=== PATIENT | male | born 1965 ===

== ENCOUNTER 2018-04-14 09:37 | Inpatient (IN) | payer OTHER ==
[2018-04-14] VITALS (17 sets, daily range): BP systolic 102–134; BP diastolic 50–78
[~2018-04-14] VITALS: Ht 175.3 cm; Wt 75.7 kg
[~2018-04-14 09:37] MED LIST: ACET1TAB12 PO; AMIT10TA6 PO; DOCU100C41 PO; HYDR25TA4 PO; LACT10SO6 PO; LISI40TA4 PO; MELO-102 PO; VERA120T96 PO; acetaminophen 325mg tablet PO ONE; cefazolin/dext.iso 2gm/50ml 50 ML IV ONE; famotidine 20mg tablet PO ONE; gabapentin 300mg capsule PO ONE; metoclopramide 5 mg/ml inj IV ONE; oxyCODONE SR 10mg (sust. release) tab -2 tabs (20mg) PO ONE; ringers solution, lacted 1,000 ML IV SCH; tranexamic acid inj. 1,000 MG in normal saline 100ml IV soln 90 ML IV ONE; vancomycin inj 1,500 MG in normal saline 300ml IV soln IV ONE
[2018-04-14] MEDS ORDERED: ringers solution, lacted 1,000 ML IV SCH ×2 (11:36→11:53)
[2018-04-14] MEDS ORDERED: ondansetron/PF 4mg/2ml inj IV PRN ×3 (11:40→15:25)
[2018-04-14] MEDS ORDERED: morphine 4 MG/ML inj SYRINge IV PRN ×4 (11:40→11:55)
[2018-04-14] MEDS ORDERED: meperidine/PF 25mg/ml syringe IV PRN ×6 (11:40→11:55)
[2018-04-14] MEDS ORDERED: proCHLORperazine 10 MG/2 ml inj IV PRN ×2 (11:40→11:55)
[2018-04-14] MEDS ORDERED: vancomycin 1,000mg inj ONE (12:23)
[2018-04-14] MEDS ORDERED: Thrombin (Bovine) 5,000 unit vial TP ONE (12:23)
[2018-04-14] MEDS ORDERED: LIDOcaine 1%/PF 5ML 10 MG/ML VIAL ONE (12:42)
[2018-04-14] MEDS ORDERED: ondansetron/PF 4mg/2ml inj ONE (12:42)
[2018-04-14] MEDS ORDERED: sevoflurane 250ml liquid IH ONE (12:42)
[2018-04-14] MEDS ORDERED: fentaNYL/PF 50MCG/1 ML 2ML syringe ONE (12:48)
[2018-04-14] MEDS ORDERED: MIDAZolam 5mg/5ml vial ONE (12:48)
[2018-04-14] MEDS ORDERED: propofol inj 20 ML IV ONE (15:08)
[2018-04-14] MEDS ORDERED: dexamethasone sod phosphate 4mg/ml inj. ONE (15:09)
[2018-04-14] MEDS ORDERED: ROPIVAcaine 0.5% (5mg/ml) 30ml vial ONE (15:09)
[2018-04-14] MEDS ORDERED: ketorolac trometh. 30mg/ml inj. ONE (15:09)
[2018-04-14] MEDS ORDERED: magnesium hydroxide 30ml (MOM) UD suspension PO PRN (15:25)
[2018-04-14] MEDS ORDERED: acetaminophen 325mg tablet PO PRN (15:25)
[2018-04-14] MEDS ORDERED: oxyCODONE IR 5mg (immed. release) tablet PO PRN (15:25)
[2018-04-14] MEDS ORDERED: diphenhydrAMINE 25mg capsule PO PRN ×2 (15:25)
[2018-04-14] MEDS ORDERED: HYDROmorphone 1 mg/ml syringe IV PRN ×2 (15:25)
[2018-04-14] MEDS ORDERED: bisacodyl 10mg suppository rectal RC PRN (15:25)
[2018-04-14] MEDS: potassium cl 20mEq in 1/2 NS 1,000 ML IV SCH (17:24)
[2018-04-14] MEDS: ceFAZolin 1GM/D5W- ADD-VANTAGE 50 ML IV SCH (17:24)
[2018-04-14] MEDS ORDERED: tranexamic acid inj. 760 MG in normal saline 100ml IV soln 100 ML IV ONE ×2 (18:25→20:45)
[2018-04-14] MEDS ORDERED: acetaminophen w/codeine (30MG) #3 tablet PO PRN (19:10)
[2018-04-14] MEDS ORDERED: vancomycin/NS 1 GM ADD-VANTAGE 250 ML IV SCH (20:00)
[2018-04-14] MEDS: gabapentin 300mg capsule PO SCH (20:42)
[2018-04-14] MEDS ORDERED: sennosides 8.6mg tablet PO SCH (21:00)
[2018-04-14] MEDS ORDERED: amitriptyline 10mg tablet PO SCH (21:00)
[2018-04-15] MEDS: oxyCODONE IR 5mg (immed. release) tablet PO PRN ×3 (00:19→11:03)
[2018-04-15] MEDS: ceFAZolin 1GM/D5W- ADD-VANTAGE 50 ML IV SCH (00:19)
[2018-04-15] MEDS: potassium cl 20mEq in 1/2 NS 1,000 ML IV SCH ×3 (00:21→15:24)
[2018-04-15 02:00] VITALS: BP 110/68
[2018-04-15 06:00] VITALS: BP 109/73
[2018-04-15 06:07] LABS: BASOPHILS % (AUTO) 0.1 % (0-1); EOSINOPHILS # (AUTO) 0.1 X10'3 (0-0.9); HEMATOCRIT 38.7 % (42.0-52.0); HEMOGLOBIN 13.1 g/dl (14.0-17.9); LYMPHOCYTES # (AUTO) 0.7 X10'3 (1.1-4.8); LYMPHOCYTES % (AUTO) 7.2 % (21-51); MEAN CORPUSCULAR HEMOGLOBIN 31.4 PG (27.0-31.0); MEAN CORPUSCULAR HGB CONC 33.9 % (33.0-36.5); MEAN CORPUSCULAR VOLUME 92.7 FL (78-98); MONOCYTES # (AUTO) 0.5 X10'3 (0-0.9); MONOCYTES % (AUTO) 5.3 % (2-12); NEUTROPHILS # (AUTO) 8.5 X10'3 (1.8-7.7); NEUTROPHILS % (AUTO) 86.4 % (42-75); PLATELET COUNT 174 X10'3 (140-440); RED BLOOD COUNT 4.17 X10'6 (4.70-6.10); RED CELL DISTRIBUTION WIDTH 13.1 % (11.5-14.5); WHITE BLOOD COUNT 9.9 X10'3 (4.5-11.0)
[2018-04-15 06:21] LABS: ANION GAP 8 (8-16); CHLORIDE 103 MMOL/L (99-107); POTASSIUM 5.6 MMOL/L (3.5-5.1); SODIUM 135 MMOL/L (135-145); TOTAL CARBON DIOXIDE 23.6 MMOL/L (24-32)
[2018-04-15] MEDS: gabapentin 300mg capsule PO SCH ×2 (07:58→13:00)
[2018-04-15] MEDS ORDERED: lactulose 20gm/30ml cup PO SCH (08:00)
[2018-04-15] MEDS ORDERED: HYDROchlorothiazide 25mg tablet PO SCH (08:00)
[2018-04-15] MEDS ORDERED: naproxen 500mg tablet PO SCH (08:00)
[2018-04-15] MEDS ORDERED: lisinopril 20mg tablet PO SCH (08:00)
[2018-04-15] MEDS ORDERED: docusate sod 100mg capsule PO SCH (08:00)
[2018-04-15] MEDS ORDERED: aspirin 325mg tablet PO SCH (08:30)
[2018-04-15 10:00] VITALS: BP 131/76
[2018-04-15] MEDS ORDERED: celeCOXIB 100mg capsule PO SCH (20:00)
[2018-04-16] MEDS ORDERED: acetaminophen 325mg tablet PO PRN (15:25)
== END 2018-04-15 15:30 | DRG 483 ==
LOC: PAS 09:37 → EDSTATUS 15:30 → EEVIPCON 15:30 → ORTHO 4S 17:25
PROVIDERS: ADMIT Orthopaedic Surgery; ATTEND Orthopaedic Surgery
PROC: 3E0T3BZ Introduction of Anesthetic Agent into Peripheral Nerves and Plexi, Percutaneous Approach (ICD-10-PCS; 2018-04-14)
PROC: 0RRJ00Z Replacement of Right Shoulder Joint with Reverse Ball and Socket Synthetic Substitute, Open Approach (ICD-10-PCS; principal; 2018-04-14 12:42)
DX: M19.011 Primary osteoarthritis, right shoulder (principal); D62 Acute posthemorrhagic anemia; I10 Essential (primary) hypertension; B19.20 Unspecified viral hepatitis C without hepatic coma; Z79.899 Other long term (current) drug therapy
CPT/HCPCS: 36415; 73020; 80051; 85025; 97110; 97116; 97161; 97530; A4565; A7000; G0378; J0690; J1100; J1885; J2001; J2250; J2405; J2704; J2765; J2795; J3010; J3370; J7030; J7120

== ENCOUNTER 2018-12-01 07:30 | Inpatient (IN) | payer OTHER ==
[~2018-12-01] VITALS: Ht 180.3 cm; Wt 74.0 kg
[2018-12-01] VITALS (17 sets, daily range): BP systolic 87–126; BP diastolic 49–85
[~2018-12-01 07:30] MED LIST changes: +LACT10SO57 PO; -LACT10SO6 PO; +MORP30TA60 PO; +OXYC-134 PO; +VERA120T9 PO; -VERA120T96 PO; -acetaminophen 325mg tablet PO ONE; -cefazolin/dext.iso 2gm/50ml 50 ML IV ONE; -famotidine 20mg tablet PO ONE; -gabapentin 300mg capsule PO ONE; -metoclopramide 5 mg/ml inj IV ONE; -oxyCODONE SR 10mg (sust. release) tab -2 tabs (20mg) PO ONE; -ringers solution, lacted 1,000 ML IV SCH; -tranexamic acid inj. 1,000 MG in normal saline 100ml IV soln 90 ML IV ONE; -vancomycin inj 1,500 MG in normal saline 300ml IV soln IV ONE
[2018-12-01] MEDS ORDERED: vancomycin inj 1,500 MG in normal saline 300ml IV soln IV ONE (08:30)
[2018-12-01] MEDS ORDERED: ringers solution, lacted 1,000 ML IV SCH ×2 (08:30→09:41)
[2018-12-01] MEDS ORDERED: cefazolin/dext.iso 2gm/100 ML IV ONE (08:30)
[2018-12-01] MEDS ORDERED: metoclopramide 5 mg/ml inj IV ONE (08:30)
[2018-12-01] MEDS ORDERED: gabapentin 300mg capsule PO ONE (08:30)
[2018-12-01] MEDS ORDERED: tranexamic acid inj. 1,000 MG in normal saline 100 ML IV ONE (08:30)
[2018-12-01] MEDS ORDERED: famotidine 20mg tablet PO ONE (08:30)
[2018-12-01] MEDS ORDERED: acetaminophen 325mg tablet PO ONE (08:30)
[2018-12-01] MEDS ORDERED: oxyCODONE SR 10mg (sust. release) tab -2 tabs (20mg) PO ONE (08:30)
[2018-12-01] MEDS ORDERED: tetracaine 1% (10mg/ml) pres. free inj. ONE (09:33)
[2018-12-01] MEDS ORDERED: fentaNYL/PF 50MCG/1 ML 2ML syringe ONE (09:35)
[2018-12-01] MEDS ORDERED: morphine /PF 1mg/ml 10ml inj. ONE (09:35)
[2018-12-01] MEDS ORDERED: MIDAZolam 1mg/ml 10ml vial ONE (09:35)
[2018-12-01] MEDS ORDERED: labetalol 20mg/4ml (5mg/ml) syringe IV PRN (09:45)
[2018-12-01] MEDS ORDERED: fentaNYL/PF 50MCG/1 ML 2ML syringe IV PRN ×2 (09:45)
[2018-12-01] MEDS ORDERED: hydrALAZINE 20mg/ml inj. IV PRN (09:45)
[2018-12-01] MEDS ORDERED: diphenhydrAMINE 50 mg/ml inj IV PRN (09:45)
[2018-12-01] MEDS ORDERED: ondansetron/PF 4mg/2ml inj IV PRN ×3 (09:45→13:00)
[2018-12-01] MEDS ORDERED: morphine 4 MG/ML inj SYRINge IV PRN ×2 (09:45)
[2018-12-01] MEDS ORDERED: ceFAZolin 1000mg inj ONE ×3 (09:57→11:31)
[2018-12-01] MEDS ORDERED: vancomycin 1,000mg inj ONE (10:13)
[2018-12-01] MEDS ORDERED: propofol inj 20 ML IV ONE (11:01)
[2018-12-01] MEDS ORDERED: LIDOcaine 2% (20mg/ml) 5ml vial ONE (11:01)
[2018-12-01] MEDS ORDERED: acetaminophen 325mg tablet PO PRN (13:00)
[2018-12-01] MEDS ORDERED: diphenhydrAMINE 25mg capsule PO PRN ×2 (13:00)
[2018-12-01] MEDS ORDERED: HYDROmorphone inj. 0.5 MG/0.5 ML DISP.SYRIN IV PRN (13:00)
[2018-12-01] MEDS ORDERED: oxyCODONE IR 5mg (immed. release) tablet PO PRN (13:00)
[2018-12-01] MEDS: gabapentin 300mg capsule PO SCH ×2 (13:00→21:46)
[2018-12-01] MEDS ORDERED: magnesium hydroxide 30ml (MOM) UD suspension PO PRN (13:00)
[2018-12-01] MEDS ORDERED: bisacodyl 10mg suppository rectal RC PRN (13:00)
--- NOTE | 2018-12-01 13:07 | NUR ---
Received from OR via , accompanied by Anesthesiologist dr. colin and report given by Anesthesiolgist. patient arrived via hospital bed. VSS as charted, 02 94% on 2lnc. DUSTIN dressing to right hip, cdi. Ice pack in place, scd's in place, f/c draining light yellow drainage. Correctional officers at bedside. Will continue to monitor.
[2018-12-01] MEDS: acetaminophen 325mg tablet PO SCH ×2 (14:00→20:10)
--- NOTE | 2018-12-01 14:17 | NUR ---
PATIENT DISCHARGE CRITERIA MET. REPORT CALLED TO CHANDU TINAJERO ALL QUESTIONS AND CONCERNS ADDRESSED. DUSTIN DRESSING TO LEFT HIP CDI. F/C IN PLACE DRAINING LIGHT YELLOW URINE, SCD'S IN PLACE. TRANSFERRED VIA HOSPITAL BED. GUARDS AT BEDSIDE.
[2018-12-01] MEDS ORDERED: tranexamic acid inj. 750 MG in normal saline 100ml IV soln 100 ML IV ONE (16:00)
[2018-12-01] MEDS: oxyCODONE IR 5mg (immed. release) tablet PO PRN ×2 (16:07→20:11)
[2018-12-01] MEDS: ceFAZolin 1GM/D5W- ADD-VANTAGE 50 ML IV SCH (16:52)
[2018-12-01] MEDS: potassium cl 20mEq in 1/2 NS 1,000 ML IV SCH (16:52)
[2018-12-01] MEDS ORDERED: acetaminophen w/codeine (30MG) #3 tablet PO PRN (17:25)
[2018-12-01] MEDS ORDERED: docusate sod 100mg capsule PO PRN (17:25)
[2018-12-01] MEDS ORDERED: vancomycin/NS 1 GM ADD-VANTAGE 250 ML IV SCH (20:00)
[2018-12-01] MEDS ORDERED: lactulose 20gm/30ml cup PO PRN (20:00)
[2018-12-01] MEDS: sennosides 8.6mg tablet PO SCH (21:00)
[2018-12-01] MEDS ORDERED: amitriptyline 10mg tablet PO SCH (21:00)
[2018-12-01] MEDS: amitriptyline 10mg tablet PO SCH (21:48)
[2018-12-02] VITALS (9 sets, daily range): BP systolic 100–127; BP diastolic 58–77
[2018-12-02] MEDS: HYDROmorphone 1 mg/ml syringe IV PRN ×4 (00:19→20:15)
[2018-12-02] MEDS: ceFAZolin 1GM/D5W- ADD-VANTAGE 50 ML IV SCH (00:23)
[2018-12-02] MEDS: potassium cl 20mEq in 1/2 NS 1,000 ML IV SCH ×4 (00:30→20:59)
[2018-12-02] MEDS: acetaminophen 325mg tablet PO SCH ×4 (02:12→20:18)
--- NOTE | 2018-12-02 06:22 | NUR ---
NATALYA ALAS PER ORDER, CATH TIP INTACT, URINAL AT BEDSIDE Addendum: 12/02/18 at 0623 by Amanda Sam RN Amended: Links added.
--- NOTE | 2018-12-02 06:45 | NUR ---
Report received from LIOR Patel
[2018-12-02 06:53] LABS: BASOPHILS % (AUTO) 0.5 % (0-1); EOSINOPHILS # (AUTO) 0.1 X10'3 (0-0.9); EOSINOPHILS % (AUTO) 1.4 % (0-6); HEMATOCRIT 40.3 % (42.0-52.0); HEMOGLOBIN 13.7 g/dl (14.0-17.9); LYMPHOCYTES # (AUTO) 1.4 X10'3 (1.1-4.8); LYMPHOCYTES % (AUTO) 19.7 % (21-51); MEAN CORPUSCULAR HEMOGLOBIN 32.1 PG (27.0-31.0); MEAN CORPUSCULAR HGB CONC 33.9 g/dL (33.0-36.5); MEAN CORPUSCULAR VOLUME 94.6 FL (78-98); MEAN PLATELET VOLUME 8.7 FL (7.4-10.4); MONOCYTES # (AUTO) 0.7 X10'3 (0-0.9); MONOCYTES % (AUTO) 10.8 % (2-12); NEUTROPHILS # (AUTO) 4.6 X10'3 (1.8-7.7); NEUTROPHILS % (AUTO) 67.6 % (42-75); PLATELET COUNT 150 X10'3 (140-440); RED BLOOD COUNT 4.26 X10'6 (4.70-6.10); RED CELL DISTRIBUTION WIDTH 12.9 % (11.5-14.5); WHITE BLOOD COUNT 6.9 X10'3 (4.5-11.0)
[2018-12-02] MEDS: oxyCODONE IR 5mg (immed. release) tablet PO PRN ×3 (07:28→17:51)
[2018-12-02] MEDS: HYDROchlorothiazide 25mg tablet PO SCH (08:00)
[2018-12-02] MEDS: lisinopril 20mg tablet PO SCH (08:00)
[2018-12-02] MEDS: verapamil SR 120mg (sust. release) tab PO SCH (08:00)
[2018-12-02] MEDS: gabapentin 300mg capsule PO SCH ×3 (08:00→20:18)
[2018-12-02] MEDS ORDERED: ASPI-1 PO (09:44)
[2018-12-02] MEDS ORDERED: WALKERFR (09:44)
[2018-12-02] MEDS: aspirin 325mg tablet PO SCH (10:12)
--- NOTE | 2018-12-02 16:25 | NUR ---
Tele DCd per protocol
--- NOTE | 2018-12-02 18:30 | NUR ---
Report given to LIOR Wells
--- NOTE | 2018-12-02 19:00 | NUR ---
Patient in room ORTHO 4010. I have received report from Aminata TINAJERO and had the opportunity to ask questions and assume patient care.
[2018-12-02] MEDS: celeCOXIB 100mg capsule PO SCH (20:17)
[2018-12-02] MEDS: amitriptyline 10mg tablet PO SCH (20:18)
[2018-12-02] MEDS: sennosides 8.6mg tablet PO SCH (21:00)
[2018-12-03] MEDS: oxyCODONE IR 5mg (immed. release) tablet PO PRN ×4 (00:07→17:32)
[2018-12-03] MEDS: acetaminophen 325mg tablet PO SCH ×2 (03:52→09:12)
[2018-12-03] MEDS: potassium cl 20mEq in 1/2 NS 1,000 ML IV SCH (04:59)
[2018-12-03 06:00] VITALS: BP 97/58
[2018-12-03 07:01] LABS: BASOPHILS % (AUTO) 0.4 % (0-1); EOSINOPHILS # (AUTO) 0.3 X10'3 (0-0.9); EOSINOPHILS % (AUTO) 2.9 % (0-6); HEMATOCRIT 34.8 % (42.0-52.0); HEMOGLOBIN 12.2 g/dl (14.0-17.9); LYMPHOCYTES # (AUTO) 1.1 X10'3 (1.1-4.8); LYMPHOCYTES % (AUTO) 12.8 % (21-51); MEAN CORPUSCULAR HEMOGLOBIN 32.5 PG (27.0-31.0); MEAN CORPUSCULAR HGB CONC 34.9 g/dL (33.0-36.5); MEAN PLATELET VOLUME 8.5 FL (7.4-10.4); MONOCYTES % (AUTO) 10.9 % (2-12); NEUTROPHILS # (AUTO) 6.5 X10'3 (1.8-7.7); PLATELET COUNT 130 X10'3 (140-440); RED BLOOD COUNT 3.74 X10'6 (4.70-6.10); RED CELL DISTRIBUTION WIDTH 12.7 % (11.5-14.5); WHITE BLOOD COUNT 8.9 X10'3 (4.5-11.0)
[2018-12-03] MEDS: HYDROmorphone 1 mg/ml syringe IV PRN ×2 (07:24→13:37)
[2018-12-03 08:00] VITALS: BP 103/70
[2018-12-03] MEDS: verapamil SR 120mg (sust. release) tab PO SCH (08:00)
[2018-12-03] MEDS: lisinopril 20mg tablet PO SCH (08:00)
[2018-12-03] MEDS: HYDROchlorothiazide 25mg tablet PO SCH (08:00)
[2018-12-03] MEDS: aspirin 325mg tablet PO SCH (09:11)
[2018-12-03] MEDS: celeCOXIB 100mg capsule PO SCH (09:11)
[2018-12-03] MEDS: gabapentin 300mg capsule PO SCH ×2 (09:11→12:21)
[2018-12-03] MEDS ORDERED: acetaminophen 325mg tablet PO PRN (13:00)
--- NOTE | 2018-12-03 13:59 | NUR ---
Guards in room stated P-up time for pt will not be until aprox 6-7pm when transport is coordinated. pt ok to DC. WBAT, per Dr Butt: also gave recommendations for pain medications. called recommendations to [facility] by chair frame builder/Alisa. Report.
--- NOTE | 2018-12-03 18:10 | NUR ---
I called [employer] regarding the need for the guards to borrow a w/c to transfer patient back to the alf. There was a miscommunication about needing a w/c for patient in the transport van back to the alf. [employer] gave permission to allow us to have them use one of the hospital's w/c and to return it when they come back to the hospital in future date. If they were not allowed to borrow a w/c then they would have to keep patient one more night and d/c him tomorrow. I have a list of phone numbers for the alf that we can call at later date to make arrangements for the w/c to be returned. Per the guards they come to our hospital frequently so it should be no problem in returning the w/c.
--- NOTE | 2018-12-03 18:43 | NUR ---
[facility], spoke deanne/Popeye/RN. Pt escorted BEATA in WC belonging to [facility]/will need to take to facility as escort Guards did not bring a WC for transport Van. Pt denies pain, SOB, resp distress, N/V, vertigo at DC. pt facility physician will be prescribing new Rx meds for pt. Facility called earlier in the day to confirm.
== END 2018-12-03 18:30 | DRG 470 ==
LOC: EDSTATUS 07:30 → EEVIPCON 07:30 → PAS IN 08:00 → EDSTATUS 10:30 → ORTHO 4S 14:50
PROVIDERS: ADMIT Orthopaedic Surgery; ATTEND Orthopaedic Surgery
PROC: 0SRB06A Replacement of Left Hip Joint with Oxidized Zirconium on Polyethylene Synthetic Substitute, Uncemented, Open Approach (ICD-10-PCS; principal; 2018-12-01 10:35)
DX: M16.12 Unilateral primary osteoarthritis, left hip (principal); D62 Acute posthemorrhagic anemia; M25.552 Pain in left hip; I10 Essential (primary) hypertension; B18.2 Chronic viral hepatitis C
CPT/HCPCS: Z7506; Z7508; 36415; 72170; 82948; 85025; 86885; 86900; 86901; 87081; 97110; 97116; 97161; 97530; A4618; A6258; A6449; A7000; C1758; C1776; C9250; G0378; J0690; J1170; J2001; J2250; J2270; J2704; J2765; J3010; J3370; J3480; J7120

== ENCOUNTER 2019-02-02 14:35 | Inpatient (IN) | payer OTHER ==
[~2019-02-02] VITALS: Ht 180.3 cm; Wt 74.0 kg
[2019-02-02] VITALS (15 sets, daily range): BP systolic 98–139; BP diastolic 58–88
[~2019-02-02 14:35] MED LIST changes: +ASPI-1 PO; +WALKERFR; +cefazolin/dext.iso 2gm/50ml 50 ML IV ONE; +famotidine 20mg tablet PO ONE; +vancomycin 1,000mg inj ONE; +vancomycin inj 1,500 MG in normal saline 300ml IV soln IV ONE
[2019-02-02] MEDS ORDERED: LIDOcaine 1% (10mg/ml) 2ml vial ONE (14:36)
[2019-02-02 15:35] LABS: BASOPHILS # (AUTO) 0.1 X10'3 (0-0.2); BASOPHILS % (AUTO) 1.3 % (0-1); EOSINOPHILS # (AUTO) 0.2 X10'3 (0-0.9); EOSINOPHILS % (AUTO) 4.5 % (0-6); LYMPHOCYTES # (AUTO) 1.4 X10'3 (1.1-4.8); LYMPHOCYTES % (AUTO) 27.2 % (21-51); MEAN CORPUSCULAR HEMOGLOBIN 30.2 PG (27.0-31.0); MEAN CORPUSCULAR HGB CONC 33.3 g/dL (33.0-36.5); MEAN CORPUSCULAR VOLUME 90.7 FL (78-98); MEAN PLATELET VOLUME 7.1 FL (7.4-10.4); MONOCYTES # (AUTO) 0.4 X10'3 (0-0.9); MONOCYTES % (AUTO) 8.3 % (2-12); NEUTROPHILS # (AUTO) 3.1 X10'3 (1.8-7.7); NEUTROPHILS % (AUTO) 58.7 % (42-75); PRE OP HEMATOCRIT 39.3 % (42.0-52.0); PRE OP HEMOGLOBIN 13.1 g/dL (14.0-17.9); PRE OP PLATELET COUNT 287 X10'3 (140-440); RED BLOOD COUNT 4.33 X10'6 (4.70-6.10); RED CELL DISTRIBUTION WIDTH 13.3 % (11.5-14.5)
[2019-02-02] MEDS ORDERED: sevoflurane 250ml liquid IH ONE (15:44)
[2019-02-02] MEDS ORDERED: midazolam 2 mg/2 ml injection ONE (15:49)
[2019-02-02] MEDS ORDERED: fentaNYL /PF 50mcg/ml 5ml ampule ONE (15:49)
[2019-02-02] MEDS ORDERED: tranexamic acid inj. 1,000 MG in normal saline 100ml IV soln 100 ML IV ONE (15:50)
[2019-02-02 15:53] LABS: ALBUMIN 3.7 G/DL (3.4-5.0); ALKALINE PHOSPHATASE 69 IU/L (46-116); BLOOD UREA NITROGEN 14 MG/DL (7-18); BUN/CREATININE RATIO 12.7 (5.4-32.0); C-REACTIVE PROTEIN 0.66 MG/DL (0.0-0.5); CALCIUM 8.9 MG/DL (8.5-10.1); CHLORIDE 105 MMOL/L (99-107); PRE OP ALT 17 U/L (30-65); PRE OP ANION GAP 13 (8-16); PRE OP AST 20 U/L (10-37); PRE OP BILIRUB, TOTAL 0.5 MG/DL (0.0-1.0); PRE OP GLUCOSE 82 MG/DL (70-104); PRE OP POTASSIUM 3.8 MMOL/L (3.4-5.1); PRE OP SODIUM 141 MMOL/L (135-145); TOTAL CARBON DIOXIDE 22.7 MMOL/L (24-32); TOTAL PROTEIN 7.3 G/DL (6.4-8.2); eGFR 69 ML/MIN
[2019-02-02] MEDS ORDERED: propofol inj 20 ML IV ONE (16:32)
[2019-02-02] MEDS ORDERED: rocuronium 10mg/ml inj IV ONE (16:32)
[2019-02-02] MEDS ORDERED: LIDOcaine 2% (20mg/ml) 5ml vial ONE (16:32)
[2019-02-02] MEDS: ceFAZolin 1000mg inj ONE ×2 (16:41→16:42)
[2019-02-02] MEDS: tobramycin sulfate 1.2gm vial IJ ONE ×2 (16:42→16:45)
[2019-02-02] MEDS: vancomycin 1,000mg inj ONE ×2 (16:43→16:45)
[2019-02-02] MEDS ORDERED: SULF1TAB49 PO (16:43)
[2019-02-02] MEDS ORDERED: ceFAZolin 1000mg inj ONE (16:49)
[2019-02-02] MEDS ORDERED: ketamine 50mg/5ml syringe ONE (16:52)
[2019-02-02] MEDS ORDERED: dexamethasone sod phosphate 4mg/ml inj. ONE (16:55)
[2019-02-02] MEDS ORDERED: neostigmine methylsulfate 1 MG/ML 10ml vial ONE (16:55)
[2019-02-02] MEDS ORDERED: glycopyrrolate 0.2mg/ml inj ONE (16:55)
[2019-02-02] MEDS ORDERED: ondansetron/PF 4mg/2ml inj ONE (16:55)
[2019-02-02] MEDS ORDERED: ringers solution, lacted 1,000 ML IV SCH (17:04)
[2019-02-02] MEDS ORDERED: proCHLORperazine 10 MG/2 ml inj IV PRN (17:05)
[2019-02-02] MEDS ORDERED: meperidine/PF 25mg/ml syringe IV PRN ×2 (17:05)
[2019-02-02] MEDS ORDERED: morphine 4 MG/ML inj SYRINge IV PRN ×2 (17:05)
[2019-02-02] MEDS ORDERED: ondansetron/PF 4mg/2ml inj IV PRN ×2 (17:05→17:25)
[2019-02-02 17:23] LABS: APPEARANCE,SYNOVIAL FLUID CLOUDY; COLOR,SYNOVIAL FLUID OTHER; LYMPHOCYTES,SYNOVIAL FLUID 2 % (0-75); MONOCYTES,SYNOVIAL FLUID 3 % (0-0); NEUTROPHILS,SYNOVIAL FLUID 95 % (0-25); SYN RBC 12250 /CU MM (0); SYN WBC 18750 /CU MM (0-200)
[2019-02-02] MEDS ORDERED: HYDROmorphone inj. 0.5 MG/0.5 ML DISP.SYRIN IV PRN (17:25)
[2019-02-02] MEDS ORDERED: bisacodyl 10mg suppository rectal RC PRN (17:25)
[2019-02-02] MEDS ORDERED: oxyCODONE IR 5mg (immed. release) tablet PO PRN (17:25)
[2019-02-02] MEDS ORDERED: HYDROmorphone 1 mg/ml syringe IV PRN (17:25)
[2019-02-02] MEDS ORDERED: diphenhydrAMINE 25mg capsule PO PRN ×2 (17:25)
--- NOTE | 2019-02-02 17:52 | NUR ---
Received from OR via BED , accompanied by Anesthesiologist DR SANTOS and report given by Anesthesiolgist. PATIENT WAKING UP, DENIES PAIN, V/S WNL, NEUROVASCULAR CHECKS INTACT, 18G PIV LUE , WV DRESSING TO LEFT HIP CDI AT 125 CONTINOUS SUCTION AND BONIFACIO DRAIN ALSO WITH APPROX 10CCW/ COLD POWDER PACK AND W/ SCD ON. F/C DRAINING CLEAR YELLOW URINE. SENSATION T-11.
[2019-02-02] MEDS: meperidine/PF 25mg/ml syringe IV PRN ×2 (17:56→18:11)
[2019-02-02] MEDS ORDERED: acetaminophen 1,000mg/100ml IV 100 ML IV ONE (18:15)
--- NOTE | 2019-02-02 18:15 | NUR ---
Patient in room PAS IN 900. I have received report from LIOR Sanders and had the opportunity to ask questions and assume patient care.
--- NOTE | 2019-02-02 18:20 | NUR ---
PATIENT A&OX4, DENIES PAIN, V/S WNL, NEUROVASCULAR CHECKS INTACT, 18G PIV LUE , DRESSING TO LEFT HIP WITH HV AND BONIFACIO CDI WITH NO LEAKS DETECTED W/ COLD POWDER PACK AND W/ SCD ON. F/C DRAINING CLEAR YELLOW URINE.FULL SENSATIONS, BOLTON, PATIENT TAKEN TO ORTHO WITH ALL BELONGINGS AND HOOKED UP TO MONITORS IN ROOM AND REPORT GIVEN TO NURSERYPERSON WHO HAS TAKEN OVER PATIENT CARE. 2 GUARDS ARE WITH PATIENT AT BEDSIDE AT ALL TIMES WELL.
[2019-02-02] MEDS: potassium cl 20mEq in 1/2 NS 1,000 ML IV SCH (18:40)
[2019-02-02] MEDS: acetaminophen 325mg tablet PO SCH (19:55)
[2019-02-02] MEDS ORDERED: vancomycin/NS 1 GM ADD-VANTAGE 250 ML IV SCH (20:00)
[2019-02-02] MEDS ORDERED: acetaminophen 1,000mg/100ml IV 100 ML IV SCH (20:00)
[2019-02-02] MEDS: oxyCODONE IR 5mg (immed. release) tablet PO PRN (20:03)
[2019-02-02] MEDS: gabapentin 300mg capsule PO SCH (20:03)
[2019-02-02] MEDS: sennosides 8.6mg tablet PO SCH (20:03)
[2019-02-02 20:21] LABS: PRE OP PARTIAL THROMB. TIME 32 SECONDS (22-32)
[2019-02-03] VITALS (7 sets, daily range): BP systolic 95–109; BP diastolic 46–63
[2019-02-03] MEDS: ceFAZolin 1GM/D5W- ADD-VANTAGE 50 ML IV SCH ×2 (00:02→07:33)
[2019-02-03] MEDS: acetaminophen 325mg tablet PO SCH ×4 (02:00→20:05)
[2019-02-03] MEDS: oxyCODONE IR 5mg (immed. release) tablet PO PRN ×5 (02:29→20:13)
[2019-02-03] MEDS: potassium cl 20mEq in 1/2 NS 1,000 ML IV SCH ×4 (02:30→23:15)
[2019-02-03] MEDS ORDERED: ringers solution, lacted 1,000 ML IV SCH (05:00)
[2019-02-03 06:02] LABS: BASOPHILS % (AUTO) 0.4 % (0-1); EOSINOPHILS % (AUTO) 0.2 % (0-6); HEMATOCRIT 32.3 % (42.0-52.0); HEMOGLOBIN 10.9 g/dl (14.0-17.9); LYMPHOCYTES # (AUTO) 0.8 X10'3 (1.1-4.8); LYMPHOCYTES % (AUTO) 11.5 % (21-51); MEAN CORPUSCULAR HEMOGLOBIN 30.7 PG (27.0-31.0); MEAN CORPUSCULAR HGB CONC 33.9 g/dL (33.0-36.5); MEAN CORPUSCULAR VOLUME 90.7 FL (78-98); MEAN PLATELET VOLUME 7.5 FL (7.4-10.4); MONOCYTES # (AUTO) 0.4 X10'3 (0-0.9); MONOCYTES % (AUTO) 6.1 % (2-12); NEUTROPHILS # (AUTO) 5.7 X10'3 (1.8-7.7); NEUTROPHILS % (AUTO) 81.8 % (42-75); PLATELET COUNT 244 X10'3 (140-440); RED BLOOD COUNT 3.56 X10'6 (4.70-6.10); RED CELL DISTRIBUTION WIDTH 13.1 % (11.5-14.5)
--- NOTE | 2019-02-03 06:30 | NUR ---
Patient in room ORTHO 4024. I have received report from Gemma and had the opportunity to ask questions and assume patient care.
--- NOTE | 2019-02-03 06:44 | NUR ---
Problems reprioritized. Patient report given, questions answered & plan of care reviewed with LIOR Aguila.
[2019-02-03 07:07] LABS: ANION GAP 9 (8-16); CHLORIDE 105 MMOL/L (99-107); SODIUM 139 MMOL/L (135-145); TOTAL CARBON DIOXIDE 24.6 MMOL/L (24-32)
[2019-02-03] MEDS: gabapentin 300mg capsule PO SCH ×3 (07:33→20:06)
[2019-02-03] MEDS: lisinopril 20mg tablet PO SCH (07:39)
[2019-02-03] MEDS: enoxaparin 40mg/0.4ml syringe SQ SCH (07:40)
[2019-02-03] MEDS: penicillin G potassium inj 3,000,000 UNIT in normal saline 100ml IV soln 100 ML IV SCH ×4 (12:39→23:15)
--- NOTE | 2019-02-03 15:45 | NUR ---
WOC bedside to assess wound VAC dressing. VAC dressing suctioned down at 125mm/hg low continuous suction with no signs of impairment or leaks at this time. Will continue to follow and change VAC dressing per protocol
--- NOTE | 2019-02-03 16:24 | NUR ---
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 Pt seen at bedside provided with verbal protein education. Pt currently on regular diet, pending documentation of PO intake. Pt reports getting extra protein at the [facility] and is agreeable to double eggs QD with breakfast and double protein TID, d/w dietary. Will continue to follow. Addendum: 02/03/19 at [address] Amended: Links added.
--- NOTE | 2019-02-03 18:23 | NUR ---
Problems reprioritized. Patient report given, questions answered & plan of care reviewed with Kandice.
--- NOTE | 2019-02-03 18:25 | NUR ---
Patient in room ORTHO 4017. I have received report from Ayla TINAJERO and had the opportunity to ask questions and assume patient care.
[2019-02-03] MEDS: lactobacillus rhamnosus 10,000 MMU CELLS/CAPSULE PO SCH (20:05)
[2019-02-03] MEDS: sennosides 8.6mg tablet PO SCH (20:05)
[2019-02-04] MEDS: penicillin G potassium inj 3,000,000 UNIT in normal saline 100ml IV soln 100 ML IV SCH ×5 (03:01→20:00)
[2019-02-04] MEDS: acetaminophen 325mg tablet PO SCH ×3 (03:02→13:31)
[2019-02-04 06:00] VITALS: BP 105/65
--- NOTE | 2019-02-04 06:00 | NUR ---
Patient in room ORTHO 4017. I have received report from SHAUNA TINAJERO and had the opportunity to ask questions and assume patient care.
--- NOTE | 2019-02-04 06:13 | NUR ---
Problems reprioritized. Patient report given, questions answered & plan of care reviewed with Israel TINAJERO and Wendy JOHNSON.
[2019-02-04 06:53] LABS: BASOPHILS # (AUTO) 0.1 X10'3 (0-0.2); BASOPHILS % (AUTO) 0.9 % (0-1); EOSINOPHILS # (AUTO) 0.2 X10'3 (0-0.9); EOSINOPHILS % (AUTO) 3.1 % (0-6); HEMOGLOBIN 11.2 g/dl (14.0-17.9); LYMPHOCYTES # (AUTO) 1.3 X10'3 (1.1-4.8); LYMPHOCYTES % (AUTO) 18.3 % (21-51); MEAN CORPUSCULAR HEMOGLOBIN 30.5 PG (27.0-31.0); MEAN CORPUSCULAR HGB CONC 33.8 g/dL (33.0-36.5); MEAN CORPUSCULAR VOLUME 90.2 FL (78-98); MEAN PLATELET VOLUME 7.5 FL (7.4-10.4); MONOCYTES # (AUTO) 0.6 X10'3 (0-0.9); MONOCYTES % (AUTO) 8.8 % (2-12); NEUTROPHILS # (AUTO) 4.9 X10'3 (1.8-7.7); NEUTROPHILS % (AUTO) 68.9 % (42-75); PLATELET COUNT 226 X10'3 (140-440); RED BLOOD COUNT 3.66 X10'6 (4.70-6.10); RED CELL DISTRIBUTION WIDTH 13.1 % (11.5-14.5); WHITE BLOOD COUNT 7.1 X10'3 (4.5-11.0)
[2019-02-04] MEDS: gabapentin 300mg capsule PO SCH ×3 (07:33→21:41)
[2019-02-04] MEDS: lactobacillus rhamnosus 10,000 MMU CELLS/CAPSULE PO SCH ×2 (07:33→20:00)
[2019-02-04] MEDS: oxyCODONE IR 5mg (immed. release) tablet PO PRN ×4 (07:35→21:53)
[2019-02-04] MEDS: enoxaparin 40mg/0.4ml syringe SQ SCH (07:35)
[2019-02-04] MEDS: lisinopril 20mg tablet PO SCH (07:37)
[2019-02-04] MEDS: potassium cl 20mEq in 1/2 NS 1,000 ML IV SCH (09:25)
[2019-02-04 10:00] VITALS: BP 126/51
[2019-02-04] MEDS: acetaminophen 325mg tablet PO PRN (17:21)
[2019-02-04] MEDS ORDERED: acetaminophen 325mg tablet PO PRN (17:25)
--- NOTE | 2019-02-04 18:20 | NUR ---
Problems reprioritized. Patient report given, questions answered & plan of care reviewed with CAMDEN TINAJERO.
[2019-02-04 19:00] VITALS: BP 100/53
[2019-02-04] MEDS: sennosides 8.6mg tablet PO SCH (21:41)
[2019-02-04 23:00] VITALS: BP 89/52
[2019-02-05] MEDS: penicillin G potassium inj 3,000,000 UNIT in normal saline 100ml IV soln 100 ML IV SCH ×6 (01:17→20:52)
[2019-02-05] MEDS: oxyCODONE IR 5mg (immed. release) tablet PO PRN ×5 (04:35→20:51)
[2019-02-05 06:00] VITALS: BP 100/55
[2019-02-05 06:14] LABS: BASOPHILS # (AUTO) 0.1 X10'3 (0-0.2); EOSINOPHILS # (AUTO) 0.2 X10'3 (0-0.9); EOSINOPHILS % (AUTO) 2.7 % (0-6); HEMATOCRIT 29.7 % (42.0-52.0); HEMOGLOBIN 10.2 g/dl (14.0-17.9); LYMPHOCYTES # (AUTO) 1.4 X10'3 (1.1-4.8); LYMPHOCYTES % (AUTO) 16.8 % (21-51); MEAN CORPUSCULAR HGB CONC 34.4 g/dL (33.0-36.5); MEAN CORPUSCULAR VOLUME 90.3 FL (78-98); MEAN PLATELET VOLUME 7.6 FL (7.4-10.4); MONOCYTES # (AUTO) 0.7 X10'3 (0-0.9); MONOCYTES % (AUTO) 8.9 % (2-12); NEUTROPHILS # (AUTO) 5.7 X10'3 (1.8-7.7); NEUTROPHILS % (AUTO) 70.6 % (42-75); PLATELET COUNT 203 X10'3 (140-440); RED BLOOD COUNT 3.28 X10'6 (4.70-6.10); RED CELL DISTRIBUTION WIDTH 13.1 % (11.5-14.5); WHITE BLOOD COUNT 8.1 X10'3 (4.5-11.0)
[2019-02-05] MEDS: gabapentin 300mg capsule PO SCH ×3 (07:44→20:52)
[2019-02-05] MEDS: enoxaparin 40mg/0.4ml syringe SQ SCH (07:44)
[2019-02-05] MEDS: lactobacillus rhamnosus 10,000 MMU CELLS/CAPSULE PO SCH ×2 (07:44→20:52)
[2019-02-05] MEDS: lisinopril 20mg tablet PO SCH (07:50)
[2019-02-05 10:00] VITALS: BP 105/60
--- NOTE | 2019-02-05 12:45 | NUR ---
REMOVED BONIFACIO DRAIN, TIP INTACT. PATIENT TOLERATED WELL.
[2019-02-05] MEDS: magnesium hydroxide 30ml (MOM) UD suspension PO PRN (14:55)
[2019-02-05] MEDS: acetaminophen 325mg tablet PO PRN (17:08)
--- NOTE | 2019-02-05 18:15 | NUR ---
Problems reprioritized. Patient report given, questions answered & plan of care reviewed with JOHANNE TINAJERO.
--- NOTE | 2019-02-05 19:00 | NUR ---
Patient in room ORTHO 4017. I have received report from Israel TINAJERO and had the opportunity to ask questions and assume patient care.
[2019-02-05] MEDS: sennosides 8.6mg tablet PO SCH (20:52)
[2019-02-06] MEDS: penicillin G potassium inj 3,000,000 UNIT in normal saline 100ml IV soln 100 ML IV SCH ×6 (01:02→20:55)
[2019-02-06] MEDS: oxyCODONE IR 5mg (immed. release) tablet PO PRN ×6 (01:02→23:04)
[2019-02-06 06:00] VITALS: BP 92/49
[2019-02-06 07:20] LABS: BASOPHILS # (AUTO) 0.1 X10'3 (0-0.2); BASOPHILS % (AUTO) 1.1 % (0-1); EOSINOPHILS # (AUTO) 0.4 X10'3 (0-0.9); EOSINOPHILS % (AUTO) 5.4 % (0-6); HEMATOCRIT 28.2 % (42.0-52.0); HEMOGLOBIN 9.6 g/dl (14.0-17.9); LYMPHOCYTES # (AUTO) 1.3 X10'3 (1.1-4.8); LYMPHOCYTES % (AUTO) 17.5 % (21-51); MEAN CORPUSCULAR HEMOGLOBIN 30.5 PG (27.0-31.0); MEAN CORPUSCULAR HGB CONC 34.1 g/dL (33.0-36.5); MEAN CORPUSCULAR VOLUME 89.5 FL (78-98); MEAN PLATELET VOLUME 7.8 FL (7.4-10.4); MONOCYTES # (AUTO) 0.7 X10'3 (0-0.9); MONOCYTES % (AUTO) 9.7 % (2-12); NEUTROPHILS # (AUTO) 4.9 X10'3 (1.8-7.7); NEUTROPHILS % (AUTO) 66.3 % (42-75); PLATELET COUNT 218 X10'3 (140-440); RED BLOOD COUNT 3.15 X10'6 (4.70-6.10); WHITE BLOOD COUNT 7.4 X10'3 (4.5-11.0)
[2019-02-06] MEDS: lisinopril 20mg tablet PO SCH (08:00)
[2019-02-06] MEDS: gabapentin 300mg capsule PO SCH ×3 (09:21→20:33)
[2019-02-06] MEDS: lactobacillus rhamnosus 10,000 MMU CELLS/CAPSULE PO SCH ×2 (09:21→20:33)
[2019-02-06] MEDS: enoxaparin 40mg/0.4ml syringe SQ SCH (09:26)
[2019-02-06 10:00] VITALS: BP 109/72
[2019-02-06 18:30] VITALS: BP 104/58
[2019-02-06] MEDS: sennosides 8.6mg tablet PO SCH (20:33)
[2019-02-06] MEDS: magnesium hydroxide 30ml (MOM) UD suspension PO PRN (20:34)
[2019-02-06 21:58] VITALS: BP 101/59
[2019-02-07] MEDS: penicillin G potassium inj 3,000,000 UNIT in normal saline 100ml IV soln 100 ML IV SCH ×6 (01:07→19:52)
[2019-02-07] MEDS: oxyCODONE IR 5mg (immed. release) tablet PO PRN ×4 (04:27→19:53)
[2019-02-07 06:58] VITALS: BP 99/61
[2019-02-07] MEDS: lactobacillus rhamnosus 10,000 MMU CELLS/CAPSULE PO SCH ×2 (07:25→19:51)
[2019-02-07] MEDS: gabapentin 300mg capsule PO SCH ×3 (07:25→20:01)
[2019-02-07] MEDS: lisinopril 20mg tablet PO SCH (07:31)
[2019-02-07] MEDS: enoxaparin 40mg/0.4ml syringe SQ SCH (07:32)
[2019-02-07 10:00] VITALS: BP 109/58
--- NOTE | 2019-02-07 11:35 | NUR ---
Initial: Pt PO 100% meals w/ double proteins TID meeting needs. LBM 02/06. No nutrition concerns at this time. Will continue to monitor. 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 Pt seen at bedside provided with verbal protein education. Pt currently on regular diet, pending documentation of PO intake. Pt reports getting extra protein at the correction and is agreeable to double eggs QD with breakfast and double protein TID, d/w dietary. Will continue to follow. Rec: 1. continue regualr diet w/ double proteins TIDWM 2. wt per rx Addendum: 02/07/19 at [address] Amended: Links added.
--- NOTE | 2019-02-07 15:15 | NUR ---
WOUND INFECTION EDUCATION PROVIDED BY WOUND CARE 1. Patient instructed to call their primary doctor, or go the ED immediately if any of the following symptoms occur: * Increased pain in wound * Increase in drainage from the wound * Redness in the skin surrounding the wound * Warmth in the skin surrounding the wound * Bleeding from the wound * Temperature of 101 or greater 2. If any of these occur while in the hospital tell a nurse immediately. Addendum: 02/07/19 at 1516 by Donta Rojas RN Amended: Links added.
[2019-02-07 18:00] VITALS: BP 102/62
--- NOTE | 2019-02-07 18:25 | NUR ---
Patient in room ORTHO 4017. I have received report from Emma TINAJERO and had the opportunity to ask questions and assume patient care.
[2019-02-07] MEDS: sennosides 8.6mg tablet PO SCH (20:01)
[2019-02-07 22:00] VITALS: BP 99/68
[2019-02-08] MEDS: penicillin G potassium inj 3,000,000 UNIT in normal saline 100ml IV soln 100 ML IV SCH ×7 (00:32→23:53)
[2019-02-08] MEDS: oxyCODONE IR 5mg (immed. release) tablet PO PRN ×5 (00:33→23:54)
--- NOTE | 2019-02-08 01:18 | NUR ---
Pt complaining of not being able to pee. Pt states that he believes straining to pee is what caused his wound vac to leak previously, and if he feels that he cannot urinate fully if he doesn't strain very hard. Palpated bladder and it felt firm. August RN bladder scanned pt and it said >999 mL. Inserted chambers catheter and at least 1260 mL immediately drained into urine drainage bag. Bladder palpated again and no longer feels firm.
[2019-02-08 04:37] LABS: EOSINOPHILS # (AUTO) 0.4 X10'3 (0-0.9); EOSINOPHILS % (AUTO) 8.4 % (0-6); HEMATOCRIT 25.6 % (42.0-52.0); HEMOGLOBIN 8.7 g/dl (14.0-17.9); LYMPHOCYTES # (AUTO) 0.9 X10'3 (1.1-4.8); LYMPHOCYTES % (AUTO) 22.3 % (21-51); MEAN CORPUSCULAR HEMOGLOBIN 30.6 PG (27.0-31.0); MEAN CORPUSCULAR HGB CONC 33.9 g/dL (33.0-36.5); MEAN CORPUSCULAR VOLUME 90.2 FL (78-98); MONOCYTES # (AUTO) 0.4 X10'3 (0-0.9); MONOCYTES % (AUTO) 10.7 % (2-12); NEUTROPHILS # (AUTO) 2.4 X10'3 (1.8-7.7); NEUTROPHILS % (AUTO) 57.6 % (42-75); PLATELET COUNT 239 X10'3 (140-440); RED BLOOD COUNT 2.84 X10'6 (4.70-6.10); RED CELL DISTRIBUTION WIDTH 13.1 % (11.5-14.5); WHITE BLOOD COUNT 4.2 X10'3 (4.5-11.0)
[2019-02-08 06:00] VITALS: BP 95/57
--- NOTE | 2019-02-08 06:11 | NUR ---
Problems reprioritized. Patient report given, questions answered & plan of care reviewed with Emma TINAJERO.
[2019-02-08] MEDS: lisinopril 20mg tablet PO SCH (08:00)
[2019-02-08] MEDS: gabapentin 300mg capsule PO SCH ×3 (08:29→20:13)
[2019-02-08] MEDS: lactobacillus rhamnosus 10,000 MMU CELLS/CAPSULE PO SCH ×2 (08:29→19:22)
[2019-02-08] MEDS: enoxaparin 40mg/0.4ml syringe SQ SCH (08:30)
[2019-02-08 10:00] VITALS: BP 89/53
--- NOTE | 2019-02-08 11:00 | NUR ---
Dr. Butt arrived on unit to see pt at approximately [address]. In[address] Dr[address] Butt pts dressing/wound vac had come off earlier in the day, and a large amount of sanguineous drainage came out onto the bed/dri-flow. Informed Dr. Butt this had happened x3 mornings (informed yesterday of 2nd burst of sanguineous drainage). Per Dr. Butt informed to DC wound vac and change pt over to wet to dry dressing q 12h and prn as needed. Miscellaneous nursing orders entered with instructions on which dressings to apply first after old dressing removed.
--- NOTE | 2019-02-08 13:58 | NUR ---
WOUND INFECTION EDUCATION PROVIDED BY WOUND CARE 1. Patient instructed to call their primary doctor, or go the ED immediately if any of the following symptoms occur: * Increased pain in wound * Increase in drainage from the wound * Redness in the skin surrounding the wound * Warmth in the skin surrounding the wound * Bleeding from the wound * Temperature of 101 or greater 2. If any of these occur while in the hospital tell a nurse immediately. Addendum: 02/08/19 at 1359 by Donta Rojas RN Amended: Links added.
[2019-02-08 18:41] VITALS: BP 108/64
[2019-02-08] MEDS: sennosides 8.6mg tablet PO SCH (20:13)
[2019-02-08 22:00] VITALS: BP 104/66
[2019-02-09] MEDS: penicillin G potassium inj 3,000,000 UNIT in normal saline 100ml IV soln 100 ML IV SCH ×5 (05:09→20:05)
[2019-02-09] MEDS: oxyCODONE IR 5mg (immed. release) tablet PO PRN ×4 (05:12→20:05)
[2019-02-09 06:00] VITALS: BP 101/60
--- NOTE | 2019-02-09 06:15 | NUR ---
Patient in room ORTHO 4017. I have received report from August and had the opportunity to ask questions and assume patient care.
[2019-02-09] MEDS: lactobacillus rhamnosus 10,000 MMU CELLS/CAPSULE PO SCH ×2 (07:58→20:05)
[2019-02-09] MEDS: gabapentin 300mg capsule PO SCH ×3 (07:58→20:05)
[2019-02-09] MEDS: lisinopril 20mg tablet PO SCH (07:59)
[2019-02-09] MEDS: enoxaparin 40mg/0.4ml syringe SQ SCH (07:59)
[2019-02-09 10:30] VITALS: BP 111/68
[2019-02-09 18:00] VITALS: BP 91/56
--- NOTE | 2019-02-09 18:12 | NUR ---
Problems reprioritized. Patient report given, questions answered & plan of care reviewed with Miranda Hernandez
--- NOTE | 2019-02-09 18:14 | NUR ---
Received report from Ayla TINAJERO.
[2019-02-09] MEDS: sennosides 8.6mg tablet PO SCH (20:05)
[2019-02-09 22:00] VITALS: BP 143/84
[2019-02-10] MEDS: penicillin G potassium inj 3,000,000 UNIT in normal saline 100ml IV soln 100 ML IV SCH ×6 (00:07→19:48)
[2019-02-10] MEDS: oxyCODONE IR 5mg (immed. release) tablet PO PRN ×5 (02:47→20:58)
[2019-02-10 06:00] VITALS: BP 105/63
--- NOTE | 2019-02-10 06:20 | NUR ---
Patient in room ORTHO 4017. I have received report from Miranda Hernandez and had the opportunity to ask questions and assume patient care.
--- NOTE | 2019-02-10 06:28 | NUR ---
Report given to Ayla TINAJERO.
[2019-02-10] MEDS: lisinopril 20mg tablet PO SCH (08:00)
[2019-02-10] MEDS: lactobacillus rhamnosus 10,000 MMU CELLS/CAPSULE PO SCH ×2 (08:53→19:47)
[2019-02-10] MEDS: gabapentin 300mg capsule PO SCH ×3 (08:53→19:48)
[2019-02-10] MEDS: enoxaparin 40mg/0.4ml syringe SQ SCH (08:54)
[2019-02-10 10:00] VITALS: BP 107/66
[2019-02-10 18:00] VITALS: BP 111/66
--- NOTE | 2019-02-10 18:13 | NUR ---
Problems reprioritized. Patient report given, questions answered & plan of care reviewed with Miranda Hernandez
[2019-02-10] MEDS: sennosides 8.6mg tablet PO SCH (19:48)
[2019-02-10 22:00] VITALS: BP 107/58
[2019-02-11] MEDS: penicillin G potassium inj 3,000,000 UNIT in normal saline 100ml IV soln 100 ML IV SCH ×7 (00:05→23:44)
[2019-02-11] MEDS: oxyCODONE IR 5mg (immed. release) tablet PO PRN ×5 (04:03→23:45)
[2019-02-11 06:00] VITALS: BP 101/62
--- NOTE | 2019-02-11 06:24 | NUR ---
Problems reprioritized. Patient report given, questions answered & plan of care reviewed with LIOR Banda.
--- NOTE | 2019-02-11 06:43 | NUR ---
Patient in room ORTHO 4017. I have received report from Miranda Saxena RN and had the opportunity to ask questions and assume patient care.
[2019-02-11] MEDS: lisinopril 20mg tablet PO SCH (08:00)
[2019-02-11] MEDS: gabapentin 300mg capsule PO SCH ×3 (08:51→20:17)
[2019-02-11] MEDS: enoxaparin 40mg/0.4ml syringe SQ SCH (08:51)
[2019-02-11] MEDS: lactobacillus rhamnosus 10,000 MMU CELLS/CAPSULE PO SCH ×2 (08:51→20:17)
[2019-02-11 10:00] VITALS: BP 122/81
--- NOTE | 2019-02-11 16:57 | NUR ---
IV Penicillin that was due at 1200 was missed, and 1600 Penicillin was given but eMAR scanned it under the 1200 dose. 1600 non-administered in eMAR
[2019-02-11 18:00] VITALS: BP 101/67
--- NOTE | 2019-02-11 18:26 | NUR ---
Problems reprioritized. Patient report given, questions answered & plan of care reviewed with Miranda Saxena RN.
[2019-02-11] MEDS: sennosides 8.6mg tablet PO SCH (20:17)
[2019-02-11 22:00] VITALS: BP 102/59
[2019-02-12] MEDS: oxyCODONE IR 5mg (immed. release) tablet PO PRN ×5 (04:05→20:15)
[2019-02-12] MEDS: penicillin G potassium inj 3,000,000 UNIT in normal saline 100ml IV soln 100 ML IV SCH ×5 (04:06→20:17)
[2019-02-12 06:10] VITALS: BP 125/75
--- NOTE | 2019-02-12 06:30 | NUR ---
I have received patient report from Miranda Saxena RN
[2019-02-12] MEDS: lactobacillus rhamnosus 10,000 MMU CELLS/CAPSULE PO SCH ×2 (08:11→20:15)
[2019-02-12] MEDS: aspirin 81mg tab.chew PO SCH (08:11)
[2019-02-12] MEDS: lisinopril 20mg tablet PO SCH (08:12)
[2019-02-12] MEDS: gabapentin 300mg capsule PO SCH ×3 (08:12→20:15)
[2019-02-12 10:00] VITALS: BP 128/72
--- NOTE | 2019-02-12 11:08 | NUR ---
Patient in room ORTHO 4017. I have received report from Cassie Goldberg RN and had the opportunity to ask questions and assume patient care.
--- NOTE | 2019-02-12 11:11 | NUR ---
Patient report given to Leno TINAJERO
[2019-02-12 18:00] VITALS: BP 95/58
--- NOTE | 2019-02-12 18:05 | NUR ---
Problems reprioritized. Patient report given, questions answered & plan of care reviewed with Zoya TINAJERO. Addendum: 02/12/19 at 1808 by Leno Lafleur RN reported on wrong patient
--- NOTE | 2019-02-12 18:15 | NUR ---
Problems reprioritized. Patient report given, questions answered & plan of care reviewed with Miranda TINAJERO.
[2019-02-12] MEDS: sennosides 8.6mg tablet PO SCH (20:15)
[2019-02-12 22:00] VITALS: BP 97/58
[2019-02-13] MEDS: penicillin G potassium inj 3,000,000 UNIT in normal saline 100ml IV soln 100 ML IV SCH ×6 (00:12→20:54)
[2019-02-13] MEDS: oxyCODONE IR 5mg (immed. release) tablet PO PRN ×6 (00:15→20:54)
--- NOTE | 2019-02-13 06:15 | NUR ---
Problems reprioritized. Patient report given, questions answered & plan of care reviewed with LIOR Pabon.
[2019-02-13 06:39] VITALS: BP 92/57
[2019-02-13] MEDS: lisinopril 20mg tablet PO SCH (08:00)
[2019-02-13] MEDS: gabapentin 300mg capsule PO SCH ×3 (08:11→20:54)
[2019-02-13] MEDS: aspirin 81mg tab.chew PO SCH (08:11)
[2019-02-13] MEDS: lactobacillus rhamnosus 10,000 MMU CELLS/CAPSULE PO SCH ×2 (08:11→19:47)
[2019-02-13 10:17] VITALS: BP 132/64
[2019-02-13 10:27] VITALS: BP 95/58
--- NOTE | 2019-02-13 13:41 | NUR ---
reassessment: Pt PO 100% meals w/ double proteins meeting needs. LBM 02/12. No nutrition concerns at this time. Rec: 1. continue regualr diet w/ double proteins TIDWM 2. wt per rx Addendum: 02/13/19 at [address] Amended: Links added.
[2019-02-13 17:00] VITALS: BP 106/60
--- NOTE | 2019-02-13 18:15 | NUR ---
Patient in room ORTHO 4017. I have received report from Pepper TINAJERO and had the opportunity to ask questions and assume patient care.
[2019-02-13] MEDS: sennosides 8.6mg tablet PO SCH (20:54)
[2019-02-13 22:00] VITALS: BP 108/68
[2019-02-14] MEDS: penicillin G potassium inj 3,000,000 UNIT in normal saline 100ml IV soln 100 ML IV SCH ×7 (00:33→23:21)
[2019-02-14] MEDS: oxyCODONE IR 5mg (immed. release) tablet PO PRN ×5 (01:14→20:34)
--- NOTE | 2019-02-14 06:04 | NUR ---
Problems reprioritized. Patient report given, questions answered & plan of care reviewed with Sarita TINAJERO.
--- NOTE | 2019-02-14 06:24 | NUR ---
Received report from Kandice TINAJERO
[2019-02-14 06:37] VITALS: BP 95/60
[2019-02-14] MEDS: lisinopril 20mg tablet PO SCH (08:00)
[2019-02-14] MEDS: aspirin 81mg tab.chew PO SCH (08:22)
[2019-02-14] MEDS: gabapentin 300mg capsule PO SCH ×3 (08:22→20:34)
[2019-02-14] MEDS: lactobacillus rhamnosus 10,000 MMU CELLS/CAPSULE PO SCH ×2 (08:22→19:34)
[2019-02-14 09:23] LABS: BASOPHILS # (AUTO) 0.1 X10'3 (0-0.2); BASOPHILS % (AUTO) 1.2 % (0-1); EOSINOPHILS # (AUTO) 0.2 X10'3 (0-0.9); EOSINOPHILS % (AUTO) 4.7 % (0-6); HEMATOCRIT 31.9 % (42.0-52.0); HEMOGLOBIN 10.9 g/dl (14.0-17.9); LYMPHOCYTES % (AUTO) 19.3 % (21-51); MEAN CORPUSCULAR HEMOGLOBIN 30.5 PG (27.0-31.0); MEAN CORPUSCULAR HGB CONC 34.1 g/dL (33.0-36.5); MEAN CORPUSCULAR VOLUME 89.4 FL (78-98); MEAN PLATELET VOLUME 6.4 FL (7.4-10.4); MONOCYTES # (AUTO) 0.5 X10'3 (0-0.9); MONOCYTES % (AUTO) 9.8 % (2-12); NEUTROPHILS # (AUTO) 3.3 X10'3 (1.8-7.7); PLATELET COUNT 381 X10'3 (140-440); RED BLOOD COUNT 3.56 X10'6 (4.70-6.10); RED CELL DISTRIBUTION WIDTH 13.6 % (11.5-14.5); WHITE BLOOD COUNT 5.1 X10'3 (4.5-11.0)
[2019-02-14 09:44] LABS: ALBUMIN 2.7 G/DL (3.4-5.0); ANION GAP 8 (8-16); BLOOD UREA NITROGEN 10 MG/DL (7-18); BUN/CREATININE RATIO 11.5 (5.4-32.0); CALCIUM 8.5 MG/DL (8.5-10.1); CHLORIDE 102 MMOL/L (99-107); CREATININE 0.87 MG/DL (0.60-1.10); GLUCOSE 134 MG/DL (70-104); POTASSIUM 3.7 MMOL/L (3.5-5.1); SODIUM 139 MMOL/L (135-145); TOTAL CARBON DIOXIDE 28.9 MMOL/L (24-32); eGFR > 90 ML/MIN
[2019-02-14 10:22] VITALS: BP 93/55
[2019-02-14 18:00] VITALS: BP 115/68
--- NOTE | 2019-02-14 18:10 | NUR ---
Patient in room ORTHO 4017. I have received report from Sraita TINAJERO and had the opportunity to ask questions and assume patient care.
[2019-02-14] MEDS: sennosides 8.6mg tablet PO SCH (20:34)
[2019-02-14 22:00] VITALS: BP 107/74
[2019-02-15] MEDS: oxyCODONE IR 5mg (immed. release) tablet PO PRN ×3 (00:47→12:01)
[2019-02-15] MEDS: penicillin G potassium inj 3,000,000 UNIT in normal saline 100ml IV soln 100 ML IV SCH ×3 (04:06→12:01)
--- NOTE | 2019-02-15 06:08 | NUR ---
Problems reprioritized. Patient report given, questions answered & plan of care reviewed with Sarita TINAJERO.
--- NOTE | 2019-02-15 06:34 | NUR ---
Received report from Kandice TINAJERO
[2019-02-15 06:42] VITALS: BP 104/64
[2019-02-15] MEDS: lisinopril 20mg tablet PO SCH (07:29)
[2019-02-15] MEDS: lactobacillus rhamnosus 10,000 MMU CELLS/CAPSULE PO SCH (07:35)
[2019-02-15] MEDS: gabapentin 300mg capsule PO SCH (07:35)
[2019-02-15] MEDS: aspirin 81mg tab.chew PO SCH (07:35)
[2019-02-15 10:00] VITALS: BP 107/67
[2019-02-15] MEDS ORDERED: [UNRECOGNIZED DRUG - CODE] IJ (11:57)
--- NOTE | 2019-02-15 15:19 | NUR ---
Patient left with guards. PICC line and folie stayed in place at time of transport. report was called into [facility].
== END 2019-02-15 15:00 | DRG 467 ==
LOC: PAS IN 14:35 → EEVIPCON 15:00 → EDSTATUS 15:00 → ORTHO 4S 19:38
PROVIDERS: ADMIT Orthopaedic Surgery; ATTEND Orthopaedic Surgery
PROC: 0SUE09Z Supplement Left Hip Joint, Acetabular Surface with Liner, Open Approach (ICD-10-PCS; 2019-02-02)
PROC: 3E0U029 Introduction of Other Anti-infective into Joints, Open Approach (ICD-10-PCS; 2019-02-02)
PROC: 0SPB09Z Removal of Liner from Left Hip Joint, Open Approach (ICD-10-PCS; principal; 2019-02-02 15:44)
DX: T84.52XA Infection and inflammatory reaction due to internal left hip prosthesis, initial encounter (principal); D62 Acute posthemorrhagic anemia; I10 Essential (primary) hypertension; B19.20 Unspecified viral hepatitis C without hepatic coma; Y83.1 Surgical operation with implant of artificial internal device as the cause of abnormal reaction of the patient, or of later complication, without mention of misadventure at the time of the procedure; Z79.899 Other long term (current) drug therapy; Z79.82 Long term (current) use of aspirin; Z88.8 Allergy status to other drugs, medicaments and biological substances
CPT/HCPCS: Z7506; Z7508; 36415; 80048; 80051; 80053; 85025; 85610; 85651; 85730; 86140; 87070; 87075; 87081; 87102; 89051; A4215; A4618; A6402; A6550; A7000; C1713; C1758; C1776; G0378; J0131; J0690; J1100; J1170; J1650; J2001; J2175; J2250; J2405; J2540; J2704; J2710; J3010; J3260; J3370; J3480; J3490; J7030; J7120